=== PATIENT | female | born 1975 | race Two or more races ===

== ENCOUNTER 2024-04-03 21:14 | Emergency (ER) | payer MEDICAID, SELFPAY ==
[2024-04-03 21:15] VITALS: BMI 27.3
[2024-04-03 21:35] VITALS: BP 177/97; PULSE 78; RESP 16; TEMP 36.9; O2SAT 100
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
[2024-04-03] MEDS: TETRACAINE PF OP SOL 0.5% 4 ML DRPETTE 1 DROP RIGHT EYE (22:20)
[2024-04-03] MEDS: FLUORESCEIN SOD 1 MG STRP RIGHT EYE (22:21)
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
[2024-04-03] MEDS: Erythromycin Op Oint 0.5% 1 GM PACKET RIGHT EYE (22:47)
== END 2024-04-03 23:18 | disposition home or self-care (01) ==
LOC: SERX 23:35
PROVIDERS: Emergency Provider Emergency Medicine; PCP Family Medicine
DX: S05.01XA Injury of conjunctiva and corneal abrasion without foreign body, right eye, initial encounter (principal); W22.8XXA Striking against or struck by other objects, initial encounter
CPT/HCPCS: 99283; A9270